=== PATIENT | male | born 1980 | race Caucasian/White ===

== ENCOUNTER 2016-12-19 14:52 | Emergency (ER) | payer OTHER ==
--- NOTE | 2016-12-19 16:44 | ED ORDER SUMMARY ---
..... Patient: JOSR VELAZQUEZ OrderSheet [facility] VisitID: [id number] [place] [address] 36y, M Registration Date/Time: 12/19/2016 ORDER SHEET Weight: 81.6 kg (stated) Allergies: No Known Drug Allergy GENERAL ORDERS: CBC w Diff Urgent (15:39 12/19/2016 HBivens A.R.N.P.) (Ack 15:42 SHAUNAoerner) (16:09 LSullivan R.N.) CMP Urgent (15:39 12/19/2016 HBivens A.R.N.P.) (Ack 15:42 SHAUNAoerner) (16:09 LSullivan R.N.) EKG - ER Stat (15:39 12/19/2016 HBivens A.R.N.P.) (15:40 LNations ER Tech1) MEDICATION ORDERS: Meclizine PO 50 mg (NOW) (15:39 12/19/2016 HBivens A.R.N.P.) (16:11 LSullivan R.N.) IV FLUIDS: IV NS : initial bolus 1000 mL (1000 mL/hr), then none - (NOW) (15:39 12/19/2016 HBivens A.R.N.P.) (16:09 LSullivan R.N.) IV Saline Lock (15:39 12/19/2016 HBivens A.R.N.P.) (16:09 LSullivan R.N.) Toradol IV 30 mg (NOW) (16:43 12/19/2016 HBivens A.R.N.P.) (16:56 LSullivan R.N.) ORDER SHEET NOTES: [Electronically signed by Alondra Evans.R.N.P. (20:20 12/19/2016)] [Electronically signed by Komal Do R.N. (08:00 12/26/2016)] [Electronically locked/signed by Komal Do R.N. (08:12/26/2016)]
--- NOTE | 2016-12-19 16:44 | ED NURSING NOTES ---
Clinical Report - Nurses [facility] [place] [address] 12/19/2016 14:55 Patient: JOSR VELAZQUEZ TRIAGE Triage time 15:51. Chief Complaint: HEADACHE and WEAKNESS and DIZZINESS (visual disturbances and ROSEBUD). Alert. --15:56 Kathe Alvarado R.N. 15:51 12/19/16. BP: 109/79. HR: 54. RR: 18. O2 saturation: 97%. Temp: 98.4 F. Pain level now: 03/09. --15:56 Kathe Alvarado R.N. Weight: 81.6 kg stated. Height/Length: 70 inches Per Patient. BMI: 25.8. --15:53 Kathe Alvarado R.N. Medications None. --15:52 Kathe Alvarado R.N. Allergies No Known Drug Allergy. --15:52 Kathe Alvarado R.N. History Arrived by private vehicle. Historian: patient. Accompanied by (akash). Primary physician (Jaya). This started last night. 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 SOCIAL HX: Former smoker, end date 05/2016. History of occasional drug use: marijuana. No alcohol use. --15:56 Kathe Alvarado R.N. PROBLEMS: Hypertension. Dental Caries. Gastroenteritis. Syncope. Chest Wall Pain. Chest Pain of GI Origin. Vomiting. Crush Injury, Upper Extremity. Fractured Phalanx (Finger). Subungual Hematoma. Head Injury. GI Bleeding. Substance Abuse. Skin Problems. Gastritis. Dental Pain. Post-Concussive Syndrome. Concussion. Sinusitis. Abscess. Contusion. --15:53 Kathe Alvarado R.N. ADDITIONAL SURGERIES: Dental Surgery. Knee Surgery. --15:53 Kathe Alvarado R.N. Interventions ID band on patient. To room. --15:56 Kathe Alvarado R.N. PHYSICAL ASSESSMENT 15:56 03/22/17. GENERAL / NEURO / PSYCH: Alert. Oriented X 4. --15:56 Kathe Alvarado R.N. NURSING PROGRESS NOTES 15:56 12/19/16. Patient identifiers checked. Call light placed in reach. Bed placed in lowest position. Patient ready for evaluation- chart flagged. --15:56 Kathe Alvarado R.N. 16:12/19/2016 Site #1 started via IV in the right forearm with an 20g angiocath, with aseptic technique and good blood return; one attempt. Blood drawn: rainbow set. Labeled in the presence of the patient and sent to the lab. Saline lock flushed with 10 mL saline. --16:09 Kathe Alvarado R.N. 16:12/19/2016 Started bag #1 1000 mL IV Fluids IV NS (Saline); at 1000 mL/hr via site #1. Confirmed 5 rights. --16:09 Kathe Alvarado R.N. 16:11 12/19/2016 Meclizine PO 50 mg given. Sedative warning given to the patient. --16:11 Kathe Alvarado R.N. 16:56 12/19/2016 Toradol IVP 30 mg given over 2 minute(s) via site #1. Allergies verified and confirmed 5 rights. --16:56 Kathe Alvarado R.N. EKG time: (1546). EKG was ordered, performed by a tech and shown to the ED physician. --16:56 Camryn Wilkinson ER Tech1 16:56 12/19/2016 IV Fluids IV NS Discontinued: bag #1 completed. Total amount infused: 1000 mL. IV flushed thoroughly. --16:56 Kathe Alvarado R.N. DISPOSITION / DISCHARGE Departure time: 1716. Condition at departure: improved. No learning barriers present. Discharge instructions provided and reviewed with the patient and spouse. Reviewed medication(s). Reviewed referral to family practice. Verbalized understanding. Written instructions provided. The patient was discharged home and accompanied by spouse. He left the Emergency Department ambulatory and via private vehicle. Spouse driving. --17:21 Kathe Alvarado R.N. 17:16 12/19/16. BP: 118/72. HR: 56. RR: 18. O2 saturation: 98%. Pain level now: 02/06. --17:21 Kathe Alvarado R.N. Locked/Released at 12/26/2016 8:00 by Komal Do R.N.
--- NOTE | 2016-12-19 16:44 | ED CLINICAL REPORT ---
Clinical Report - Physicians/Mid Levels [facility] [address] [place] [address] 12/19/2016 14:55 Patient: JOSR VELAZQUEZ Time Seen: 1529; initial patient contact, initial documentation, patient care assumed. Arrived- By private vehicle. Historian- patient. HISTORY OF PRESENT ILLNESS Chief Complaint: DIZZINESS. Severity described as severe at its maximum. When seen in the E.D., severity described as severe. Modifying factors- worsened by standing up. Relieved by closing eyes and not moving. This started last night and is still present. Described as a distinct sense of rotation and sense of movement. Not described as a sense of falling or confusion. Not described as feeling off balance, light-headed, faint or weak all over. The patient has had nausea. No vomiting, hearing loss, tinnitus or ear pain. Similar symptoms previously: None. Recent medical care: Not recently seen/assessed. REVIEW OF SYSTEMS The patient has had a headache. No double vision, weakness, head injury, chest pain or numbness. No fever, difficulty breathing or abdominal pain. No difficulty walking. All systems otherwise negative, except as recorded above. PAST HISTORY See nurses notes. ( PROBLEMS: Hypertension. Dental Caries. Gastroenteritis. Syncope. Chest Wall Pain. Chest Pain of GI Origin. Vomiting. Crush Injury, Upper Extremity. Fractured Phalanx (Finger). Subungual Hematoma. Head Injury. GI Bleeding. Substance Abuse. Skin Problems. Gastritis. Dental Pain. Post-Concussive Syndrome. Concussion. Sinusitis. Abscess. Contusion. --15:53 Kathe Alvarado, R.N. ADDITIONAL SURGERIES: Dental Surgery. Knee Surgery. --15:53 Kathe Alvarado, R.N.). SOCIAL HISTORY Former smoker. Occasional alcohol use. History of occasional drug use: marijuana. No recent travel. Is a local resident. FAMILY HISTORY Negative. ADDITIONAL NOTES The nursing notes have been reviewed with agreement regarding the chief complaint, HPI, ROS, PMH and patient medications and allergies. PHYSICAL EXAM Vital Signs: 12/19/2016 15:51 BP: 109/79. HR: 54. RR: 18. O2 saturation: 97%. Temp: 98.4 F. Pain level now: 03/09. Have been reviewed as normal and appear to be correct. Appearance: Alert. No acute distress. Eyes: Pupils equal, round and reactive to light. No nystagmus. Extraocular movements normal. ENT: Normal ENT inspection. TM's normal. Moist mucous membranes. Pharynx normal. Neck: Normal inspection. Neck supple. CVS: Normal heart rate and rhythm. Heart sounds normal. Pulses normal. Respiratory: No respiratory distress. Breath sounds normal. Back: Normal inspection. Skin: Skin warm and dry. Normal skin color. No rash. Normal skin turgor. Extremities: Extremities exhibit normal ROM. No lower extremity edema. Neuro: Alert. Oriented X 3. Mood/affect normal. Speech normal. Cranial nerves normal (as tested). No cerebellar findings. No motor deficit. No sensory deficit. LABS, X-RAYS, AND EKG EKG: EKG time: (1546). No acute process. No acute ischemia. Normal EKG. Narrow-complex bradycardia (ventricular rate 53). Sinus bradycardia. Normal EKG. The study has been interpreted contemporaneously by me (and dr silver). The EKG appears to be a good tracing. Interpretation time: 1547. Laboratory Tests: CBC w Diff: (CODI: 12/19/2016 16:00) ( MsgRcvd 12/19/2016 16:15) Final results Test Result Flag Units (Reference) WHITE BLOOD COUNT 14.3 H K/uL (4.5-11.5) RED BLOOD COUNT 4.84 M/uL (4.50-5.90) HEMOGLOBIN 14.8 gm/dL (13.5-17.5) HEMATOCRIT 43.1 % (41.0-53.0) MEAN CELL VOLUME 89 fL (80-100) MEAN CORPUSCULAR HGB 31 pg (26-34) MEAN CORPUSCULAR HGB CONC 34 g/dL (31-37) RED CELL DISTRIBUTION WIDTH 13.0 % (11.6-14.8) PLATELET COUNT 253 K/uL (150-400) NEUTROPHIL % 78.4 H % (50-75) LYMPH % 17.4 L % (25-40) MONO % 3.2 % (3-14) EOSINOPHIL % 0.8 % (0-4) BASOPHIL % 0.2 % (0-2) CMP: (CODI: 12/19/2016 16:00) ( MsgRcvd 12/19/2016 16:30) Final results Test Result Flag Units (Reference) GLUCOSE 123 H mg/dL (70-110) BUN 16 mg/dL (7-18) CREATININE 1.0 mg/dL (0.6-1.3) Estimated GFR >60 mL/min Estimated GFR- >60 mL/min Note: Persistent reduction over 3 months in eGFR<60 mL/min/1.73 m2 defines CKD. Patients with eGFR values>=60 mL/min/1.73 m2 may also have CKD if evidence ofpersistent proteinuria. Additional information may be foundat www.kidney.org. SODIUM 139 mmol/L (136-145) POTASSIUM 3.5 mmol/L (3.5-5.1) CHLORIDE 103 mmol/L (98-107) CARBON DIOXIDE 25 mmol/L (21-32) CALCIUM 8.9 mg/dL (8.5-10.1) TOTAL PROTEIN 7.5 g/dL (6.4-8.2) ALBUMIN 4.0 g/dL (3.3-5.0) BILIRUBIN, TOTAL 0.7 mg/dL (0.0-1.0) ALKALINE PHOSPHATASE 108 U/L (46-116) AST (SGOT) 19 U/L (15-37) ALT (SGPT) 29 U/L (12-78) . PROGRESS AND PROCEDURES Patient counseled in person regarding the patient's stable condition, test results and diagnosis. 16:34. Differential Diagnosis: I considered labyrinthitis, Meniere's disease, syphilis, benign positional vertigo, brainstem TIA, drug-related cause of central vertigo, near-syncope and metaphorical dizziness such as depression, chronic fatigue, etc as a possible cause of dizziness in this patient. This is a partial list of diagnoses considered. Above considerations are based on history, physical exam, laboratory data, EKG and other information. Differential diagnosis was discussed with patient. Disposition: Discharged home in good and improved condition (16:44). Condition: good and stable. CLINICAL IMPRESSION Acute dizziness INSTRUCTIONS Warnings: GENERAL WARNINGS: Return or contact your physician immediately if your condition worsens or changes unexpectedly, if not improving as expected, or if other problems arise. SPECIFICALLY, return if you develop chest pain, neck pain, jaw pain, shoulder pain, arm pain, back pain, fluttering sensation in your chest, lightheadedness, fainting, numbness, weakness or extreme fatigue. Prescription Medications: Zofran 4 mg: Take 1 orally every six hours as needed for nausea/vomiting. Dispense ten (10). No refills. Substitution is permissible. Ultram 50 mg tablets: take 1-2 orally every 6 hours as needed for pain. Dispense twenty (20). No refills. Substitution is permissible. Meclizine 25 mg: Take 1 tablet orally every 8 hours as needed for dizziness. Dispense thirty (30). No refills. Follow-up: Follow up with your doctor in about two days even if well. Summary of care provided to patient. Understanding of the discharge instructions verbalized by patient. (Electronically signed by Alondra Evans A.R.N.P. 12/19/2016 20:20)
--- NOTE | 2016-12-19 16:44 | ED ORDER SUMMARY ---
..... Patient: JOSR VELAZQUEZ OrderSheet [facility] VisitID: [id number] [place] [address] 36y, M Registration Date/Time: 12/19/2016 ORDER SHEET Weight: 81.6 kg (stated) Allergies: No Known Drug Allergy GENERAL ORDERS: CBC w Diff Urgent (15:39 12/19/2016 HBivens A.R.N.P.) (Ack 15:42 SHAUNAoerner) (16:09 LSullivan R.N.) CMP Urgent (15:39 12/19/2016 HBivens A.R.N.P.) (Ack 15:42 SHAUNAoerner) (16:09 LSullivan R.N.) EKG - ER Stat (15:39 12/19/2016 HBivens A.R.N.P.) (15:40 LNations ER Tech1) MEDICATION ORDERS: Meclizine PO 50 mg (NOW) (15:39 12/19/2016 HBivens A.R.N.P.) (16:11 LSullivan R.N.) IV FLUIDS: IV NS : initial bolus 1000 mL (1000 mL/hr), then none - (NOW) (15:39 12/19/2016 HBivens A.R.N.P.) (16:09 LSullivan R.N.) IV Saline Lock (15:39 12/19/2016 HBivens A.R.N.P.) (16:09 LSullivan R.N.) Toradol IV 30 mg (NOW) (16:43 12/19/2016 HBivens A.R.N.P.) (16:56 LSullivan R.N.) ORDER SHEET NOTES: [Electronically signed by Alondra Evans.R.N.P. (20:20 12/19/2016)] [Electronically signed by Komal Do R.N. (08:00 12/26/2016)] [Electronically locked/signed by Komal Do R.N. (08:12/26/2016)]
--- NOTE | 2016-12-19 16:44 | ED NURSING NOTES ---
Clinical Report - Nurses [facility] [place] [address] 12/19/2016 14:55 Patient: JOSR VELAZQUEZ TRIAGE Triage time 15:51. Chief Complaint: HEADACHE and WEAKNESS and DIZZINESS (visual disturbances and ORUTSARARMIUT). Alert. --15:56 Kathe Alvarado R.N. 15:51 12/19/16. BP: 109/79. HR: 54. RR: 18. O2 saturation: 97%. Temp: 98.4 F. Pain level now: 03/09. --15:56 Kathe Alvarado R.N. Weight: 81.6 kg stated. Height/Length: 70 inches Per Patient. BMI: 25.8. --15:53 Kathe Alvarado R.N. Medications None. --15:52 Kathe Alvarado R.N. Allergies No Known Drug Allergy. --15:52 Kathe Alvarado R.N. History Arrived by private vehicle. Historian: patient. Accompanied by (akash). Primary physician (Jaya). This started last night. 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 SOCIAL HX: Former smoker, end date 05/2016. History of occasional drug use: marijuana. No alcohol use. --15:56 Kathe Alvarado R.N. PROBLEMS: Hypertension. Dental Caries. Gastroenteritis. Syncope. Chest Wall Pain. Chest Pain of GI Origin. Vomiting. Crush Injury, Upper Extremity. Fractured Phalanx (Finger). Subungual Hematoma. Head Injury. GI Bleeding. Substance Abuse. Skin Problems. Gastritis. Dental Pain. Post-Concussive Syndrome. Concussion. Sinusitis. Abscess. Contusion. --15:53 Kathe Alvarado R.N. ADDITIONAL SURGERIES: Dental Surgery. Knee Surgery. --15:53 Kathe Alvarado R.N. Interventions ID band on patient. To room. --15:56 Kathe Alvarado R.N. PHYSICAL ASSESSMENT 15:56 03/22/17. GENERAL / NEURO / PSYCH: Alert. Oriented X 4. --15:56 Kathe Alvarado R.N. NURSING PROGRESS NOTES 15:56 12/19/16. Patient identifiers checked. Call light placed in reach. Bed placed in lowest position. Patient ready for evaluation- chart flagged. --15:56 Kathe Alvarado R.N. 16:12/19/2016 Site #1 started via IV in the right forearm with an 20g angiocath, with aseptic technique and good blood return; one attempt. Blood drawn: rainbow set. Labeled in the presence of the patient and sent to the lab. Saline lock flushed with 10 mL saline. --16:09 Kathe Alvarado R.N. 16:12/19/2016 Started bag #1 1000 mL IV Fluids IV NS (Saline); at 1000 mL/hr via site #1. Confirmed 5 rights. --16:09 Kathe Alvarado R.N. 16:11 12/19/2016 Meclizine PO 50 mg given. Sedative warning given to the patient. --16:11 Kathe Alvarado R.N. 16:56 12/19/2016 Toradol IVP 30 mg given over 2 minute(s) via site #1. Allergies verified and confirmed 5 rights. --16:56 Kathe Alvarado R.N. EKG time: (1546). EKG was ordered, performed by a tech and shown to the ED physician. --16:56 Camryn Wilkinson ER Tech1 16:56 12/19/2016 IV Fluids IV NS Discontinued: bag #1 completed. Total amount infused: 1000 mL. IV flushed thoroughly. --16:56 Kathe Alvarado R.N. DISPOSITION / DISCHARGE Departure time: 1716. Condition at departure: improved. No learning barriers present. Discharge instructions provided and reviewed with the patient and spouse. Reviewed medication(s). Reviewed referral to family practice. Verbalized understanding. Written instructions provided. The patient was discharged home and accompanied by spouse. He left the Emergency Department ambulatory and via private vehicle. Spouse driving. --17:21 Kathe Alvarado R.N. 17:16 12/19/16. BP: 118/72. HR: 56. RR: 18. O2 saturation: 98%. Pain level now: 02/06. --17:21 Kahte Alvarado R.N. Locked/Released at 12/26/2016 8:00 by Komal Do R.N.
--- NOTE | 2016-12-26 08:00 | ED DISCHARGE INSTRUCTIONS ---
Patient: JOSR VELAZQUEZ General Instructions [facility] VisitID: [id number] [place] [address] 36y, M Registration Date/Time: 12/19/2016 Acute dizziness INSTRUCTIONS Warnings: GENERAL WARNINGS: Return or contact your physician immediately if your condition worsens or changes unexpectedly, if not improving as expected, or if other problems arise. SPECIFICALLY, return if you develop chest pain, neck pain, jaw pain, shoulder pain, arm pain, back pain, fluttering sensation in your chest, lightheadedness, fainting, numbness, weakness or extreme fatigue. Prescription Medications: Zofran 4 mg: Take 1 orally every six hours as needed for nausea/vomiting. Dispense ten (10). No refills. Substitution is permissible. Ultram 50 mg tablets: take 1-2 orally every 6 hours as needed for pain. Dispense twenty (20). No refills. Substitution is permissible. Meclizine 25 mg: Take 1 tablet orally every 8 hours as needed for dizziness. Dispense thirty (30). No refills. Follow-up: Follow up with your doctor in about two days even if well. Summary of care provided to patient. Understanding of the discharge instructions verbalized by patient. ADDITIONAL INFORMATION Dizziness [Uncertain Cause] Dizziness is a common symptom sometimes described as "lightheadedness" or feeling like you are going to faint. If it lasts for only a few seconds and is related to changes in position (such as getting up after lying or sitting for a long time), it is usually not a sign of anything serious. Dizziness that lasts for minutes to hours, or comes on for no apparent reason, may be a sign of a more serious problem (such as dehydration, a medicine reaction, disease of the heart or brain). Today's exam did not show an exact cause for your dizzy spell . Sometimes additional tests are required before a cause can be found. Therefore, it is important to follow up with your doctor if your symptoms continue. Home Care: 1) If a dizzy spell occurs and lasts more than a few seconds, lie down until it passes. If you are lying down, then you cannot hurt yourself by falling if you do faint. 2) Do not drive or operate dangerous equipment until the dizzy spells have stopped for at least 48 hours. 3) If dizzy spells occur with sudden standing, this may be a sign of mild dehydration. Drink extra fluids over the next few days. 4) If you recently started a new medicine or if you had the dose of a current medicine increased (especially blood pressure medicine), talk with the prescribing doctor about your symptoms. Dose adjustments may be needed. Follow Up with your doctor for further evaluation within the next seven days, if your symptoms continue. Get Prompt Medical Attention if any of the following occur: -- Worsening of your symptoms -- Fainting, headache or seizure -- Repeated vomiting -- Feeling like you or the room is spinning -- Chest, arm, neck, back or jaw pain -- Palpitations (the sense that your heart is fluttering or beating fast or hard) -- Shortness of breath -- Blood in vomit or stool (black or red color) -- Weakness of an arm or leg or one side of the face -- Difficulty with speech or vision Benign Positional Vertigo The inner ear is located behind the middle ear. It is a part of the balance center of the body. It contains small calcium particles within fluid filled canals (semi-circular canals). These particles can move out of position as a result of aging, head trauma or disease of the inner ear. Once that happens, movement of the head into certain positions may cause the particles to stimulate the inner ear and create the feeling of vertigo. Vertigo is a false feeling of motion (as if you or the room is spinning). A vertigo attack may cause sudden nausea, vomiting and heavy sweating. Severe vertigo causes a loss of balance and may result in falling. During an attack of vertigo, head movement and body position changes will worsen symptoms. An episode of vertigo may last seconds, minutes or hours. Once you are over the first episode of vertigo, it may never return. Sometimes symptoms recur off and on over several weeks or longer. Home Care: If symptoms are severe, rest quietly in bed. Change positions slowly. There is usually one position that will feel best, such as lying on one side or lying on your back with your head slightly raised on pillows. Do not drive or work with dangerous machinery for one week after symptoms disappear, in case of a sudden return of symptoms. Take medicine as prescribed to relieve your symptoms. Unless another medicine was prescribed for nausea, vomiting and vertigo, you may use swnt-rib-[id number] motion sickness pills, such as meclizine (Bonine, Bonamine, Antivert) or dimenhydrinate (Dramamine). Follow Up with your doctor or as directed by our staff. Report any persistent ringing in the ear or hearing loss to your doctor. [NOTE: If you had a CT or MRI scan, it will be reviewed by a specialist. You will be notified of any new findings that may affect your care.] Get Prompt Medical Attention if any of the following occur: Worsening of vertigo not controlled by the medicine prescribed Repeated vomiting not controlled by the medicine prescribed Increased weakness or fainting Severe headache or unusual drowsiness or confusion Weakness of an arm or leg or one side of the face Difficulty with speech or vision Seizure Vertigo [Unknown Cause] The "inner ear" is located behind the middle ear. It is part of the balance center of your body. Disease of the inner ear causes vertigo -- a false feeling of motion. It feels as if you or the room is spinning. A vertigo attack may cause sudden nausea, vomiting and heavy sweating. Severe vertigo causes a loss of balance and can cause you to fall. During vertigo, small head movements and changes in body position will often make the symptoms worse. The causes of vertigo include: Inflammation of the inner ear Disease of the nerves to the inner ear Movement of calcium particles in the inner ear Poor blood flow to the balance centers of the brain An episode of vertigo may last seconds, minutes or hours. Once you are over the first episode, it may never return. However, sometimes symptoms may recur off and on over several weeks or longer, depending on the cause. There may be ringing in the ears or hearing loss, which may be temporary or permanent. Home Care: If symptoms are severe, rest quietly in bed. Change positions very slowly. There is usually one position that will feel best, such as lying on one side or lying on your back with your head slightly raised on pillows. Do not drive or work with dangerous machinery for one week after symptoms go away, in case the symptoms suddenly return. Take medicine as prescribed to relieve your symptoms. Unless another medicine was prescribed for nausea, vomiting and vertigo, you may use tvut-uql-[id number] motion sickness pills, such as meclizine (Bonine, Bonamine, Antivert) or dimenhydrinate (Dramamine). Follow Up with your doctor or as directed by our staff. Tell the doctor if your ears keep ringing, or if your hearing does not return to normal. Get Prompt Medical Attention if any of the following occur: Vertigo gets worse and is not controlled by medicine prescribed Repeated vomiting not relieved by medicine prescribed Increased weakness or fainting Severe headache or unusually drowsy or confused Weakness of an arm or leg or one side of the face Difficulty with speech or vision Ondansetron Oral disintegrating tablet What is this medicine? ONDANSETRON (on SCOTT se amparo) is used to treat nausea and vomiting caused by chemotherapy. It is also used to prevent or treat nausea and vomiting after surgery. How should I use this medicine? These tablets are made to dissolve in the mouth. Do not try to push the tablet through the foil backing. With dry hands, peel away the foil backing and gently remove the tablet. Place the tablet in the mouth and allow it to dissolve, then swallow. While you may take these tablets with water, it is not necessary to do so. Talk to your power plant inspector regarding the use of this medicine in children. Special care may be needed. What side effects may I notice from receiving this medicine? Side effects that you should report to your doctor or health critical care physician assistant as soon as possible: allergic reactions like skin rash, itching or hives, swelling of the face, lips, or tongue breathing problems dizziness fast or irregular heartbeat feeling faint or lightheaded, falls fever and chills swelling of the hands and feet tightness in the chest Side effects that usually do not require medical attention (report to your doctor or health critical care physician assistant if they continue or are bothersome): constipation or diarrhea headache What may interact with this medicine? Do not take this medicine with any of the following medications: -apomorphine -cisapride -dofetilide -dronedarone -pimozide -thioridazine -ziprasidone This medicine may also interact with the following medications: -carbamazepine -phenytoin -rifampicin -tramadol -other medicines that prolong the QT interval (cause an abnormal heart rhythm) What if I miss a dose? If you miss a dose, take it as soon as you can. If it is almost time for your next dose, take only that dose. Do not take double or extra doses. Where should I keep my medicine? Keep out of the reach of children. Store between 2 and 30 degrees C (36 and 86 degrees F). Throw away any unused medicine after the expiration date. What should I tell my health care provider before I take this medicine? They need to know if you have any of these conditions: heart disease history of irregular heartbeat liver disease low levels of magnesium or potassium in the blood an unusual or allergic reaction to ondansetron, granisetron, other medicines, foods, dyes, or preservatives or trying to get breast-feeding What should I watch for while using this medicine? Check with your doctor or health critical care physician assistant as soon as you can if you have any sign of an allergic reaction. Tramadol Hydrochloride Oral tablet What is this medicine? TRAMADOL (TRA ma dole) is a pain reliever. It is used to treat moderate to severe pain in adults. How should I use this medicine? Take this medicine by mouth with a full glass of water. Follow the directions on the prescription label. If the medicine upsets your stomach, take it with food or milk. Do not take more medicine than you are told to take. Talk to your power plant inspector regarding the use of this medicine in children. Special care may be needed. What side effects may I notice from receiving this medicine? Side effects that you should report to your doctor or health critical care physician assistant as soon as possible: allergic reactions like skin rash, itching or hives, swelling of the face, lips, or tongue breathing difficulties, wheezing confusion itching light headedness or fainting spells redness, blistering, peeling or loosening of the skin, including inside the mouth seizures Side effects that usually do not require medical attention (report to your doctor or health critical care physician assistant if they continue or are bothersome): constipation dizziness drowsiness headache nausea, vomiting What may interact with this medicine? Do not take this medicine with any of the following medications: MAOIs like Carbex, Eldepryl, Marplan, Nardil, and Parnate This medicine may also interact with the following medications: alcohol or medicines that contain alcohol antihistamines benzodiazepines bupropion carbamazepine or oxcarbazepine clozapine cyclobenzaprine digoxin furazolidone linezolid medicines for depression, anxiety, or psychotic disturbances medicines for migraine headache like almotriptan, eletriptan, frovatriptan, naratriptan, rizatriptan, sumatriptan, zolmitriptan medicines for pain like pentazocine, buprenorphine, butorphanol, meperidine, nalbuphine, and propoxyphene medicines for sleep muscle relaxants naltrexone phenobarbital phenothiazines like perphenazine, thioridazine, chlorpromazine, mesoridazine, fluphenazine, prochlorperazine, promazine, and trifluoperazine procarbazine warfarin What if I miss a dose? If you miss a dose, take it as soon as you can. If it is almost time for your next dose, take only that dose. Do not take double or extra doses. Where should I keep my medicine? Keep out of the reach of children. Store at room temperature between 15 and 30 degrees C (59 and 86 degrees F). Keep container tightly closed. Throw away any unused medicine after the expiration date. What should I tell my health care provider before I take this medicine? They need to know if you have any of these conditions: brain tumor depression drug abuse or addiction head injury if you frequently drink alcohol containing drinks kidney disease or trouble passing urine liver disease lung disease, asthma, or breathing problems seizures or epilepsy suicidal thoughts, plans, or attempt; a previous suicide attempt by you or a family member an unusual or allergic reaction to tramadol, codeine, other medicines, foods, dyes, or preservatives or trying to get breast-feeding What should I watch for while using this medicine? Tell your doctor or health critical care physician assistant if your pain does not go away, if it gets worse, or if you have new or a different type of pain. You may develop tolerance to the medicine. Tolerance means that you will need a higher dose of the medicine for pain relief. Tolerance is normal and is expected if you take this medicine for a long time. Do not suddenly stop taking your medicine because you may develop a severe reaction. Your body becomes used to the medicine. This does NOT mean you are addicted. Addiction is a behavior related to getting and using a drug for a non-medical reason. If you have pain, you have a medical reason to take pain medicine. Your doctor will tell you how much medicine to take. If your doctor wants you to stop the medicine, the dose will be slowly lowered over time to avoid any side effects. You may get drowsy or dizzy. Do not drive, use machinery, or do anything that needs mental alertness until you know how this medicine affects you. Do not stand or sit up quickly, especially if you are an older patient. This reduces the risk of dizzy or fainting spells. Alcohol can increase or decrease the effects of this medicine. Avoid alcoholic drinks. You may have constipation. Try to have a bowel movement at least every 2 to 3 days. If you do not have a bowel movement for 3 days, call your doctor or health critical care physician assistant. Your mouth may get dry. Chewing sugarless gum or sucking hard candy, and drinking plenty of water may help. Contact your doctor if the problem does not go away or is severe. Meclizine Hydrochloride Oral tablet What is this medicine? MECLIZINE (MEK bobby luischandan) is an antihistamine. It is used to prevent nausea, vomiting, or dizziness caused by motion sickness. It is also used to prevent and treat vertigo (extreme dizziness or a feeling that you or your surroundings are tilting or spinning around). How should I use this medicine? Take this medicine by mouth with a glass of water. Follow the directions on the prescription label. If you are using this medicine to prevent motion sickness, take the dose at least 1 hour before travel. If it upsets your stomach, take it with food or milk. Take your doses at regular intervals. Do not take your medicine more often than directed. Talk to your power plant inspector regarding the use of this medicine in children. Special care may be needed. What side effects may I notice from receiving this medicine? Side effects that you should report to your doctor or health critical care physician assistant as soon as possible: fainting spells fast or irregular heartbeat Side effects that usually do not require medical attention (report to your doctor or health critical care physician assistant if they continue or are bothersome): constipation difficulty passing urine difficulty sleeping headache stomach upset What may interact with this medicine? barbiturate medicines for inducing sleep or treating seizures digoxin medicines for anxiety or sleeping problems, like alprazolam, diazepam or temazepam medicines for hay fever and other allergies medicines for mental depression medicines for movement abnormalities as in Parkinson's disease, or for stomach problems medicines for pain medicines that relax muscles What if I miss a dose? If you miss a dose, take it as soon as you can. If it is almost time for your next dose, take only that dose. Do not take double or extra doses. Where should I keep my medicine? Keep out of the reach of children. Store at room temperature between 15 and 30 degrees C (59 and 86 degrees F). Keep container tightly closed. Throw away any unused medicine after the expiration date. What should I tell my health care provider before I take this medicine? They need to know if you have any of these conditions: asthma glaucoma prostate trouble stomach problems urinary problems an unusual or allergic reaction to meclizine, other medicines, foods, dyes, or preservatives or trying to get breast-feeding What should I watch for while using this medicine? If you are taking this medicine on a regular schedule, visit your doctor or health critical care physician assistant for regular checks on your progress. You may get dizzy, drowsy or have blurred vision. Do not drive, use machinery, or do anything that needs mental alertness until you know how this medicine affects you. Do not stand or sit up quickly, especially if you are an older patient. This reduces the risk of dizzy or fainting spells. Alcohol can increase possible dizziness. Avoid alcoholic drinks. Your mouth may get dry. Chewing sugarless gum or sucking hard candy, and drinking plenty of water may help. Contact your doctor if the problem does not go away or is severe. This medicine may cause dry eyes and blurred vision. If you wear contact lenses you may feel some discomfort. Lubricating drops may help. See your eye doctor if the problem does not go away or is severe. You have been given the following additional information: Dizziness, Unk Cause Benign Positional Vertigo Vertigo, Unspecified Ondansetron Oral disintegrating tablet Tramadol Hydrochloride Oral tablet Meclizine Hydrochloride Oral tablet (Electronically signed by Alondra Evans A.R.N.P. 12/19/2016 20:20)
--- NOTE | 2016-12-26 08:00 | ED MED RECONCILIATION SUMMARY ---
Patient: JORS VELAZQUEZ Medication Reconciliation Report [facility] VisitID: [id number] [place] [address] 36y, M Registration Date/Time: 12/19/2016 Weight: 81.6 kg Height/Length: 70 in. BMI: 25.8 ALLERGIES: No Known Drug Allergy The patient's Home Medications are listed below: NONE. The source(s) of the original Home Medication information: Not obtained. The following Medications were given to the patient in the Emergency Department: IV NS IV Fluids bolus 0, then 1000 mL/hr, administered: 12/19/2016 4:09:00 PM Meclizine [PO] PO 50 mg, administered: 12/19/2016 4:11:00 PM Toradol [IVP] IVP 30 mg, administered: 12/19/2016 4:56:00 PM The following Medications were prescribed to the patient: Zofran 4 mg: Take 1 orally every six hours as needed for nausea/vomiting. Dispense ten (10). No refills. Substitution is permissible. -- Alondra Evans, A.R.N.P. Ultram 50 mg tablets: take 1-2 orally every 6 hours as needed for pain. Dispense twenty (20). No refills. Substitution is permissible. -- Alondra Evans, A.R.N.P. Meclizine 25 mg: Take 1 tablet orally every 8 hours as needed for dizziness. Dispense thirty (30). No refills. -- Alondra Evans A.R.N.P.
--- NOTE | 2016-12-26 08:00 | ED MAR SUMMARY ---
..... Medication Administration Record [facility] [address] [place] [address] Patient: JOSR VELAZQUEZ Visit ID: [id number] 36y, M Weight: 81.6 kg Height/Length: 70 in BMI: 25.8 ALLERGIES: No Known Drug Allergy Start 16:09 12/19/2016 Kathe Alvarado R.N., Stop 16:56 12/19/2016 Kathe Alvarado R.N. Medication Administered: IV NS (SALINE), Dose: IV Fluids, Rate: 1000 mL/hr, Dispensed: 1000 mL bag, Site: #1 right forearm. Medication Ordered: IV NS : initial bolus 1000 mL (1000 mL/hr), then none - (NOW). Given 16:11 12/19/2016 Kathe Alvaraod R.N. Medication Administered: MECLIZINE [PO], Dose: 50 mg PO. Medication Ordered: Meclizine PO 50 mg (NOW). Given 16:56 12/19/2016 Kathe Alvarado R.N. Medication Administered: TORADOL [IVP], Dose: 30 mg IVP over 2 minute(s), Site: #1 right forearm. Medication Ordered: Toradol IV 30 mg (NOW).
--- NOTE | 2016-12-26 08:00 | ED MAR SUMMARY ---
..... Medication Administration Record [facility] [address] [place] [address] Patient: JOSR VELAZQUEZ Visit ID: [id number] 36y, M Weight: 81.6 kg Height/Length: 70 in BMI: 25.8 ALLERGIES: No Known Drug Allergy Start 16:09 12/19/2016 Kathe Alvarado R.N., Stop 16:56 12/19/2016 Kathe Alvarado R.N. Medication Administered: IV NS (SALINE), Dose: IV Fluids, Rate: 1000 mL/hr, Dispensed: 1000 mL bag, Site: #1 right forearm. Medication Ordered: IV NS : initial bolus 1000 mL (1000 mL/hr), then none - (NOW). Given 16:11 12/19/2016 Kathe Alvarado R.N. Medication Administered: MECLIZINE [PO], Dose: 50 mg PO. Medication Ordered: Meclizine PO 50 mg (NOW). Given 16:56 12/19/2016 Kathe Alvarado R.N. Medication Administered: TORADOL [IVP], Dose: 30 mg IVP over 2 minute(s), Site: #1 right forearm. Medication Ordered: Toradol IV 30 mg (NOW).
--- NOTE | 2016-12-26 08:00 | ED MED RECONCILIATION SUMMARY ---
Patient: JOSR VELAZQUEZ Medication Reconciliation Report [facility] VisitID: [id number] [place] [address] 36y, M Registration Date/Time: 12/19/2016 Weight: 81.6 kg Height/Length: 70 in. BMI: 25.8 ALLERGIES: No Known Drug Allergy The patient's Home Medications are listed below: NONE. The source(s) of the original Home Medication information: Not obtained. The following Medications were given to the patient in the Emergency Department: IV NS IV Fluids bolus 0, then 1000 mL/hr, administered: 12/19/2016 4:09:00 PM Meclizine [PO] PO 50 mg, administered: 12/19/2016 4:11:00 PM Toradol [IVP] IVP 30 mg, administered: 12/19/2016 4:56:00 PM The following Medications were prescribed to the patient: Zofran 4 mg: Take 1 orally every six hours as needed for nausea/vomiting. Dispense ten (10). No refills. Substitution is permissible. -- Alondra Evans, A.R.N.P. Ultram 50 mg tablets: take 1-2 orally every 6 hours as needed for pain. Dispense twenty (20). No refills. Substitution is permissible. -- Alondra Evans, A.R.N.P. Meclizine 25 mg: Take 1 tablet orally every 8 hours as needed for dizziness. Dispense thirty (30). No refills. -- Alondra Evans A.R.N.P.
== END 2016-12-19 17:16 | disposition home or self-care (01) ==
LOC: ED SRH 14:52
DX: R42 Dizziness and giddiness (principal); I10 Essential (primary) hypertension; F12.10 Cannabis abuse, uncomplicated; Z87.891 Personal history of nicotine dependence
CPT/HCPCS: 90100; 95059